=== PATIENT | male | born 1955 | race Caucasian/White ===

== ENCOUNTER 2019-12-31 16:45 | Emergency (ER) | payer OTHER, SELFPAY ==
[~2019-12-31] VITALS: Ht 170.2 cm; Wt 84.8 kg
[2019-12-31 16:55] VITALS: Ht 170.2 cm; Wt 84.8 kg
[2019-12-31 18:06] LABS: BASOPHIL % 0.3 % (0-2); PLATELET COUNT 238 x10^3mcL (130-400); RED CELL DISTRIBUTION WIDTH 13.3 % (11.5-14.5)
[2019-12-31 18:22] LABS: CALCIUM 9.4 mg/dL (8.5-10.1); CARBON DIOXIDE 26.8 mmol/L (21-32); CHLORIDE SERUM 104 mmol/L (98-107); CREATININE SERUM 0.9 mg/dL (0.7-1.3); GFR1 > 60 mL/min; GLUCOSE SERUM 99 mg/dL (74-106); SODIUM SERUM 139 mmol/L (136-145)
[2019-12-31 18:26] LABS: ALKALINE PHOSPHATASE 70 U/L (46-116); ALT/SGPT 50 U/L (16-63); AST/SGOT 25 U/L (15-37); BILIRUBIN TOTAL 0.5 mg/dL (0.20-1.00); CHOLESTEROL 230 mg/dL (<200); CHOLESTEROL/HDL RATIO 4.7; HDL CHOLESTEROL 49 mg/dL (40-60); LIPASE 192 IU/L (73-393); TOTAL PROTEIN, SERUM 7.5 g/dL (6.4-8.2); TRIGLYCERIDES 96 mg/dL (<150)
[2019-12-31 18:34] LABS: T3 TOTAL 1.31 ng/mL
[2019-12-31 19:18] LABS: FREE THYROXINE INDEX 2.3 ug/dL (1.4-4.5); T4(THYROXINE) 8.1 ug/dL (4.7-13.3)
[2019-12-31 19:22] VITALS: BP 128/62
[2019-12-31 19:38] LABS: FREE T4 1.07 ng/dL (0.76-1.46)
== END 2019-12-31 19:22 | disposition home or self-care (01) ==
LOC: ED 16:45
PROVIDERS: Specialist
DX: R06.02 Shortness of breath (principal); F41.9 Anxiety disorder, unspecified
CPT/HCPCS: 36600; 83880; 84439; J7030; Q0092

== ENCOUNTER 2020-02-07 18:38 | Emergency (ER) | payer OTHER ==
[~2020-02-07] VITALS: Ht 172.7 cm; Wt 92.1 kg
[2020-02-07 19:22] VITALS: Ht 172.7 cm; Wt 92.1 kg
[2020-02-07 21:16] VITALS: BP 163/90
== END 2020-02-07 21:16 | disposition home or self-care (01) ==
LOC: ED 18:38
DX: M79.10 Myalgia, unspecified site (principal); J02.9 Acute pharyngitis, unspecified
CPT/HCPCS: J1885